=== PATIENT | male | born 2000 | race Caucasian/White ===

== ENCOUNTER 2025-05-06 11:05 | Emergency (ER) | payer OTHER, BC ==
[2025-05-06] MEDS: Diphtheria,Pertussis(Acell),Tetanus Vaccine 0.5 ML Syringe IM ONE (11:45)
== END 2025-05-06 11:49 | disposition home or self-care (01) ==
LOC: MW.ED 11:05
DX: S60.453A Superficial foreign body of left middle finger, initial encounter (principal); Z79.899 Other long term (current) drug therapy; W45.8XXA Other foreign body or object entering through skin, initial encounter; Z23 Encounter for immunization
CPT/HCPCS: 26075; 90471; 90715; 99283; 99283-25; A9270-GY